=== PATIENT | male | born 1980 | race Two or more races ===

== ENCOUNTER 2017-03-13 21:03 | Emergency (ER) | payer OTHER ==
[~2017-03-13] VITALS: Ht 182.9 cm; Wt 62.2 kg
[2017-03-13 21:20] VITALS: BP 132/83
[2017-03-13] MEDS ORDERED: NEOMYCIN-BACITRACIN-POLYM UNITDOSE PKG TOP OINT TOP ONE (23:30)
[2017-03-13] MEDS ORDERED: TETANUS-DIPTH-ACEL PERTUSSIS 0.5ML SYRG IM ONE (23:30)
== END 2017-03-14 00:04 | disposition home or self-care (01) ==
LOC: ER 21:09
DX: T24.101A Burn of first degree of unspecified site of right lower limb, except ankle and foot, initial encounter (principal); X19.XXXA Contact with other heat and hot substances, initial encounter; Y93.89 Activity, other specified; Y92.89 Other specified places as the place of occurrence of the external cause; Y99.8 Other external cause status
CPT/HCPCS: 16000; 90471; 90715